=== PATIENT | male | born 1980 | race Caucasian/White ===

== ENCOUNTER → 2018-02-23 17:28 | Outpatient (CLI) | payer SELFPAY ==
--- NOTE | 2018-02-23 17:36 | CT_ITS ---
STUDY: CT PELVIS WITH CONTRAST REASON FOR EXAM: Male, 37 years old. PAIN LEFT GROIN--FEELS LIKE PREV HERNIA HX-LEFT INGUINAL HERNIA REPAIR RADIATION DOSAGE (If Supplied By Facility): CTDIvol = ( 28.21 ) mGy, DLP = ( 959.86 ) mGycm TECHNIQUE: Transaxial imaging of the pelvis was performed without oral contrast. 100CC ml of Isovue 300 contrast was administered intravenously. Individualized dose optimization techniques were used for this CT. COMPARISON: None. FINDINGS: Normal urinary bladder. The appendix is visualized and is normal. There is a left inguinal hernia containing fat. There is no bowel involvement. There is no incarceration. There is no findings suggesting that this is causing a bowel obstruction. Normal visualized small intestine. Normal visualized colon. There is no pelvic fluid. There is no pelvic lymphadenopathy or mass lesion. Normal-appearing prostate gland. Normal visualized pelvic arteries. Normal abdominal wall. Normal osseous structures. CT/Pelvis WITH IV Contrast IMPRESSION: There is a left inguinal hernia containing fat. There is no bowel involvement. There is no incarceration. There is no findings suggesting that this is causing a bowel obstruction. Electronically Signed: Morgan Watts MD at 22:40 EDT , Service support ,
== END ==
PROVIDERS: Family Provider Family Medicine; PCP Family Medicine; Visit Provider Surgery
DX: R10.30 Lower abdominal pain, unspecified (principal)
CPT/HCPCS: 72193; Q9967

== ENCOUNTER 2018-03-18 07:41 | Day surgery (SDC) | payer SELFPAY, OTHER ==
[2018-03-18] VITALS (7 sets, daily range): BP systolic 132–158; BP diastolic 78–109; PULSE 70–99; RESP 16–20; TEMP 36.4–36.9; O2SAT 97–99; BMI 30.6
--- NOTE | 2018-03-18 | HERN_PTH ---
PATIENT: MACKENZIE PACKER I LOC[place] [facility] [place][id number] AGE/SX: 37/M ROOM: RE03/18/[address]: Dr. Jesus Mendoza MD : 1980 BED: DIS: 03/18/2018 SPEC #: [id number] RECD: 03/18/18 14:26 STATUS: TANIA JADEN #: [id number] TIFFANY: 03/18/18 00:[address]: Jesus Mendoza DEPT: SURGICAL PATHOLOGY RECD BY: Alvin Cruz ENTERED: 03/18/18 14:26 SP TYPE: Hernia OTHR DR: Dr. Prince Crabtree, DO Tissues: HERNIA Procedures: Surgery Specimen Level II HEADER OPERATION: Laparoscopic left inguinal hernia repair with mesh PRE-OP DIAGNOSIS: Recurrent left inguinal hernia TISSUE SUBMITTED: Left inguinal hernia sac and contents MICROSCOPIC DIAGNOSIS Left inguinal hernia sac and contents: A piece of mature adipose tissue, consistent with hernia sac and contents. A minute lymph node tissue with reactive changes. HONEY:maria l 03/19/18 MICROSCOPIC DESCRIPTION Slides are reviewed. GROSS DESCRIPTION Received in fixative is one container labeled with the patient's name and designated inguinal hernia sac and contents. The specimen consists of a piece of yellow adipose tissue measuring 5.5 x 4.5 x 2 cm. Sections reveal yellow adipose cut surfaces without area of hemorrhage, necrosis or cystic degeneration. No mass lesion is identified. [employer] sections are submitted in one cassette. / HONEY:maria l 03/18/18 TC:5 [facility]: [id number]
--- NOTE | 2018-03-18 07:55 | EKG12_ITS ---
Test Reason : PRE OP Blood Pressure : / mmHG Vent. Rate : 071 BPM Atrial Rate : 071 BPM P-R Int : 164 ms QRS Dur : 102 ms QT Int : 396 ms P-R-T Axes : 041 -05 002 degrees QTc Int : 430 ms Normal sinus rhythm Poor R wave progression Confirmed by TAMANNA STRATTON, JESSIE ([id number]), video tape editor KRISTY TERRY ([id number]) on 03/20/2018 1:50:34 PM Referred By: Jesus Mendoza Confirmed By:JESSIE NOLEN MD
[2018-03-18 08:45] LABS: Hematocrit 43.8 % (40-54); Hemoglobin 15.3 g/dl (13.0-16.5); Mean Corp Hgb Conc 34.9 g/gl (32-36); Mean Corpuscular Hgb 29.6 pg (27.0-32.0); Mean Corpuscular Volume 84.7 fL (80-94); Mean Platelet Vol. 9.2 fl (6.2-12.0); Platelet Count 212 K/mm3 (150-450); RBC Distribution Width CV 13.4 % (11.6-14.6); Red Blood Count 5.17 M/mm3 (4.6-6.2); Scan Indicated on CBC? Y/N NO; White Blood Count 7.6 K/mm3 (4.4-11.0)
[2018-03-18 09:01] LABS: Anion Gap 6 (5-15); BUN 13 mg/dL (7-18); BUN/Creat Ratio 13.4 RATIO (10-20); Calcium,Total 8.9 mg/dL (8.5-10.1); Chloride 105 mmol/L (98-107); Creatinine, Serum 0.97 mg/dL (0.70-1.30); EST Glomerular Filtration Rate 91 mL/min (>60); Est Glom Filt Rate - Afr Amer 110 mL/min (>60); Estimated Creatinine Clearance 102.24 ml/min; Glucose 94 mg/dL (74-106); Potassium 4.1 mmol/L (3.5-5.1); Sodium Level 138 mmol/L (136-145)
--- NOTE | 2018-03-18 09:04 | DCINST_ITS ---
Discharge Diet: Light diet - advance as tolerated - if you have questions about your diet instructions, please talk to you doctor. Discharge Activity: May Not Drive - for 1 week or while taking narcotic pain medicine. May shower in (days): 1 Lifting Restrictions: 10 pounds Call your doctor if your incision/area has: Continuous Slow Oozing, Sudden Increased Bleeding, Increased Pain/ Swelling, Increased Redness, Foul Smelling Discharge Call your doctor if you observe: Fever of 101 or Higher Suture Line Care: Avoid Pulling/Pushing, Avoid Pinching/Bending Additional Dressing/Incision Instructions:: Change or remove dressing in 4 days. Leave steri-strips in place for 1 week. Allergies/Adverse Reactions: Allergies No Known Allergies Allergy (Unverified 03/11/18 14:10) Medications to take at Discharge Hydrocodone Bitart/Apap 5-325 [[place] 5MG-325MG] 1 tablet PO Q6H PRN PRN 3 Days # 10 tablet 03/18/18 The following prescriptions were given: Hydrocodone Bitart/Apap 5-325 [[place] 5MG-325MG] 1 tablet PO Q6H PRN PRN 3 Days # 10 tablet PRN Reason: Pain Primary Care Physician: Prince Crabtree DO [Primary Care Provider] - Please Follow Up With: Jesus Mendoza MD - [phone] When: Call to make an appointment to be seen in about 10 days.
[2018-03-18] MEDS: Cefazolin 2 GM in 0.9% Normal Saline 100 ML IV (09:10)
[2018-03-18] MEDS: Bupivacaine Mpf 0.5% 30 ML VIAL (10:00)
--- NOTE | 2018-03-18 10:32 | PCM.OPRPT ---
Problem List (1) Left inguinal hernia Status: Acute Report of Operation Date of Procedure: 03/18/18 Pre-Operative Diagnosis: Recurrent left inguinal hernia Post-Operative Diagnosis: Recurrent incarcerated left inguinal hernia with large cord incarcerated omentum and sac Surgery/Procedure Performed:: Laparoscopic repair of recurrent left inguinal herniorrhaphy with open excision of incarcerated omentum and sac Description of Surgical Findings:: Timeout and informed consent was obtained. 37-year-old gent was taken out from placement table underwent general endotracheal intubation anesthesia. Ancef 2 g given intravenous preoperatively. The abdomen sterilely prepped and draped. Because of a previous transverse umbilical incision consistent with a previous remote umbilical herniorrhaphy I made a vertical supraumbilical incision. 0.5% Marcaine was used as local anesthetic throughout the procedure total 30 cc was used I made a vertical incision used holding sutures of 0 Vicryl drained get direct access to the peritoneum placed a 10 mm trocar the abdomen was insufflated with CO2 there is evidence of a recurrent left inguinal hernia omentum was absolutely densely incarcerated within a recurrent indirect defect. Five-minute trochars were placed in the right and left lower quadrants and in the ileal inguinal nerve block was performed arthroscopically with a local tedious effort was made after incising the peritoneum and flapping down the peritoneum to release the incarcerated omentum it became apparent that the incarcerated portion had become a mushroom cap and was not going to be pulled back through the small hole so I used Hem-o-shyam clips to secure the omentum transected it with electrocautery completed my dissection by completely freeing the peritoneum so I could see the direct space indirect space and femoral area. Good hemostasis was intact. I then utilized a Bard 3D max large left mesh lot number [id number] expiry date 10/28/2022 reference #[id number]. I placed it so as to cover the defect area at the direct and indirect space. I secured laterally and superiorly medially with secure strap 6 packs were used. The peritoneum was then approximated to itself using 2 secure strap and then I used hemoclips to repair small peritoneal hole. Complete obliteration to the mesh was achieved. Trochars removed and visualization the abdomen was allowed to deflate of CO2 the fascia at the umbilicus was approximated with several interrupted 0 Nurolon sutures skin edges approximated up to 4 Monocryl subdermal stitches Steri-Strips Telfa OpSite dressings applied. The patient still however had a large palpable mass of tissue in the left groin. I felt that this was the second half of the omentum and the patient would be symptomatic. I made a transverse incision directly over this area performed electrocautery dissection and immediately entered upon the S remnants of the sac with incarcerated omentum I was able to circumferentially completely dissected free and remove it. Hemostasis was nicely intact. The wound was closed with deep layer of interrupted 3-0 Vicryl and then the superficial layer of running septic or 4-0 Monocryl. Steri-Strips Telfa and OpSite dressings applied. Sponge and needle and instrument count was reported the surgeon to correct blood loss was minimal. Specimens included the incarcerated omentum and hernia sac. Drains none. Blood loss minimal. The secure tack strap used was lab #[id number] V1. It was otherwise identified as [id number] STIR AP 20 5N. Lot number [id number]. Expiry date 06/19/2019 Jesus Mendoza M.D., F.A.C.S. Type of Anesthesia:: General Anesthesiologist: Chelsea Saleh
--- NOTE | 2018-03-18 10:38 | OP.PCM_ITS ---
Problem List (1) Left inguinal hernia Status: Acute Report of Operation Date of Procedure: 03/18/18 Pre-Operative Diagnosis: Recurrent left inguinal hernia Post-Operative Diagnosis: Recurrent incarcerated left inguinal hernia with large cord incarcerated omentum and sac Surgery/Procedure Performed:: Laparoscopic repair of recurrent left inguinal herniorrhaphy with open excision of incarcerated omentum and sac Description of Surgical Findings:: Timeout and informed consent was obtained. 37-year-old gent was taken out from placement table underwent general endotracheal intubation anesthesia. Ancef 2 g given intravenous preoperatively. The abdomen sterilely prepped and draped. Because of a previous transverse umbilical incision consistent with a previous remote umbilical herniorrhaphy I made a vertical supraumbilical incision. 0.5% Marcaine was used as local anesthetic throughout the procedure total 30 cc was used I made a vertical incision used holding sutures of 0 Vicryl drained get direct access to the peritoneum placed a 10 mm trocar the abdomen was insufflated with CO2 there is evidence of a recurrent left inguinal hernia omentum was absolutely densely incarcerated within a recurrent indirect defect. Five-minute trochars were placed in the right and left lower quadrants and in the ileal inguinal nerve block was performed arthroscopically with a local tedious effort was made after incising the peritoneum and flapping down the peritoneum to release the incarcerated omentum it became apparent that the incarcerated portion had become a mushroom cap and was not going to be pulled back through the small hole so I used Hem-o-shyam clips to secure the omentum transected it with electrocautery completed my dissection by completely freeing the peritoneum so I could see the direct space indirect space and femoral area. Good hemostasis was intact. I then utilized a Bard 3D max large left mesh lot number [id number] expiry date 10/28/2022 reference #[id number]. I placed it so as to cover the defect area at the direct and indirect space. I secured laterally and superiorly medially with secure strap 6 packs were used. The peritoneum was then approximated to itself using 2 secure strap and then I used hemoclips to repair small peritoneal hole. Complete obliteration to the mesh was achieved. Trochars removed and visualization the abdomen was allowed to deflate of CO2 the fascia at the umbilicus was approximated with several interrupted 0 Nurolon sutures skin edges approximated up to 4 Monocryl subdermal stitches Steri-Strips Telfa OpSite dressings applied. The patient still however had a large palpable mass of tissue in the left groin. I felt that this was the second half of the omentum and the patient would be symptomatic. I made a transverse incision directly over this area performed electrocautery dissection and immediately entered upon the S remnants of the sac with incarcerated omentum I was able to circumferentially completely dissected free and remove it. Hemostasis was nicely intact. The wound was closed with deep layer of interrupted 3-0 Vicryl and then the superficial layer of running septic or 4-0 Monocryl. Steri-Strips Telfa and OpSite dressings applied. Sponge and needle and instrument count was reported the surgeon to correct blood loss was minimal. Specimens included the incarcerated omentum and hernia sac. Drains none. Blood loss minimal. The secure tack strap used was lab #[id number] V1. It was otherwise identified as [id number] STIR AP 20 5N. Lot number [id number]. Expiry date 06/19/2019 Jesus Mendoza M.D., F.A.C.S. Type of Anesthesia:: General Anesthesiologist: Chelsea Saleh
== END 2018-03-18 14:11 | disposition home or self-care (01) ==
LOC: SDC 07:42 → AC 07:43
PROVIDERS: Family Provider Family Medicine; PCP Family Medicine; Visit Provider Surgery
PROC: (CPT 49650; principal; 2018-03-18 09:00)
DX: K40.31 Unilateral inguinal hernia, with obstruction, without gangrene, recurrent (principal); Z87.891 Personal history of nicotine dependence
CPT/HCPCS: 49651; 36415; 80048; 85027; 88302; 93005; J7120; C1781; J2405

== ENCOUNTER 2021-11-13 20:27 | Emergency (ER) | payer OTHER, SELFPAY ==
[2021-11-13 20:28] VITALS: BP 183/126; PULSE 105; RESP 16; TEMP 36; O2SAT 97; BMI 34.9
--- NOTE | 2021-11-13 20:30 | RAD_ITS ---
EXAM: XR RIGHT FOOT COMPLETE, 3 OR MORE VIEWS CLINICAL INDICATION: FALL Technologist Notes Other, FELL OFF A LADDER C/O PAIN AND SWELLING ACROSS TOP OF RT FOOT AREA OF 2ND-5TH METATARSALS TECHNIQUE: Frontal, lateral and oblique views of the right foot. This report was created using Stitch report generation technology. COMPARISON: None. FINDINGS: BONES/JOINTS: Fracture the base of the first through fifth metatarsal bones. There is dislocation of the second third fourth and fifth metatarsal bones laterally. There is disruption of the medial and mid cuneiform articulation suggesting a dislocation of the bone. There is an enthesophyte involving the posterior superior calcaneus at the site of insertion of the Achilles tendon. No sclerotic or destructive changes observed. SOFT TISSUES: Soft tissue swelling around the foot. No radiopaque foreign body. RAD/Foot min 3 Views IMPRESSION: 1. Fracture the base of the first through fifth metatarsal bones. There is dislocation of the second third fourth and fifth metatarsal bones laterally. 2. There is disruption of the medial and mid cuneiform articulation suggesting a dislocation of the bone. Electronically Signed: Morgan Watts MD at 20:50 EST , Service support ,
[2021-11-13] MEDS: HYDROcodone Bitartrate/Apap 5/325 Tablet PO (23:06)
--- NOTE | 2021-11-13 23:06 | CT_ITS ---
HISTORY: fracture -- fatmata franc fx. include ankle and foot EXAMINATION: CT Lower Extremity W/O Contrast Injection TECHNIQUE: Helically acquired images were obtained of the right foot. 2-D reformats were performed by the technologist. A radiation dose optimization technique was used for this scan. IV Contrast dosage and agent: None COMPARISON: Foot radiograph November 13, 2021 FINDINGS: SOFT TISSUES: Dorsal forefoot edema. No radiopaque foreign body. BONES/JOINTS: Comminuted fractures of the medial cuneiform, plantar second third and fourth metatarsal base, lateral fifth metatarsal base. Fracture of of the cuboid and lateral cuneiform. Dorsal lateral displacement of the second metatarsal base (and other metatarsals) with marked widening of the Lisfranc ligament and interposition of medial cuneiform fragments into the Lisfranc space. No sclerotic or destructive changes. CT/Extremity Lower without Contra IMPRESSION: Numerous tarsal metatarsal base fractures as above with Lisfranc ligament disruption and gross dorsal lateral displacement of the second metatarsal (and other metatarsal ) base. Individualized dose optimization techniques were used for this CT. at 0119 Reported and signed by: Jean Claude Osman MD Electronically Signed: Jean Claude Osman MD at 1:18 EST Tel , Service support ,
--- NOTE | 2021-11-13 23:17 | EDS_ITS ---
HPI History of Present Illness Chief Complaint: Lower Extremity Injury Informant: patient Narrative Narrative: Patient presents valuation of right foot injury occurring proxy 7:30 PM this evening. Helping his neighbor inside their shop when the ladder skidded down. He came off directly onto his foot. He did not fall or hit his head. Pain to the right foot. No paresthesias. No neck or back pain. Denies history of fractures. History of inguinal hernia repair. He has tolerated [place] in the past. PFSH PFSH Medical History Left inguinal hernia Non-smoker Recurrent left inguinal hernia Home Medications hydrocodone-acetaminophen 1 tab PO Q6H PRN 3 Days #12 tab 11/13/21 [Rx Last Taken Unknown] Allergy/AdvReac Type Severity Reaction Status Date / Time No Known Allergies Allergy Unverified 11/13/21 20:29 Surgical History H/O inguinal hernia repair Social History Smoking Status: Never smoker alcohol intake: never ROS ROS ED Constitutional Constitutional ED: Denies chills, fever(s) or sweats Eyes Eyes: Denies change in vision ENT ENT ED: Denies dysphagia or sore throat Cardiovascular Cardiovascular: Denies chest pain, leg edema, palpitations or racing heartbeat Respiratory/Chest Respiratory/Chest: Denies cough, dyspnea or dyspnea on exertion Gastrointestinal Gastrointestinal: Denies abdominal pain, diarrhea, nausea or vomiting Genitourinary Genitourinary ED: Denies dysuria, hematuria or urinary frequency Musculoskeletal Musculoskeletal: Reports other Details: Right foot injury ; Denies back pain, e xtremity pain or neck pain Integumentary Denies rash or wounds Neurologic Neurologic: Denies headache(s), paresthesias or weakness EXAM Physical Exam Const Vital Signs: 11/13/21 20:28 Temperature 96.8 F L Temperature Source Temporal Pulse Rate 105 H Respiratory Rate 16 Blood Pressure 183/126 H Blood Pressure Mean 145 Pulse Ox 97 Oxygen Delivery Method Room Air Positive well nourished and well developed General Appearance ED: well developed and NAD HEENT Reports moist mucous membranes normocephalic and atraumatic Eyes PERRL, EOMs intact bilaterally and conjunctivae normal General Eye ED: Yes normal appearance of both eyes Neck no lymphadenopathy and supple General: Negative for tenderness Chest Wall Chest: Negative for tenderness Resp normal respiratory effort and normal air movement Effort and Inspection: symmetric chest movement; Negative for respiratory distress Cardio regular rate, regular rhythm and no murmurs Peripheral Pulses: pulses 2+ throughout GI normal to inspection, nondistended, normoactive bowel sounds and non-tender Palpation: Negative for guarding or rebound tenderness present Back/Spine no CVA tenderness and no thoracic nor lumbar tenderness Extremity Extremity Narrative: Right lower extremity: No hip knee or ankle tenderness. There is swelling to the foot with ecchymosis laterally. Skin intact. Neurovascular intact distally. General Extremety ED: Yes edema; Negative for tenderness General Extremity: edema Neuro oriented x3 and no sensory deficits noted Sensorium / Orientation: awake and alert Skin no rashes or lesions noted and no wounds MDM MDM MDM Narrative Medical decision making narrative: Patient's x-ray was obtained from triage due to busy department. This was reviewed by myself 3 views right foot concerns for Lisfranc fracture dislocation. There is no shifting of the 2nd-5th metatarsals laterally. Appears to have avulsion fracture proximal first metatarsal, transverse fracture density proximal fifth metatarsal. His skin is intact. He is fairly comfortable in no acute distress with this fracture. His blood pressure was elevated likely due to the fracture. He has tolerated [place] which was given to him. I discussed with foot and ankle Dr. Bergman, she did agree with obtaining lower extremity CT for surgical planning. She agrees with a posterior splint and nonweightbearing with crutches. She will closely see him in the next 2 days. Discussed compartment syndrome symptoms for strict return with the patient and family. Splinting procedure: Verbal consent. Nylon sleeve was placed, Kerlix was wrapped for padding. Extra padding to the foot was placed. A 5 inch plaster short leg splint was placed. Malcolm wrap used to secure. Neurovascular intact post splinting. Patient tolerate procedure well. Discharge Plan Triage Chief Complaint: Lower Extremity Injury ED Provider: Santiago Smith Dx/Rx/DC Orders Clinical Impression: Lisfranc dislocation, Lisfranc fracture, Foot fracture, right Instructions: Understanding Lisfranc Joint Injury, Treatment for Lisfranc Joint Injury, ED Fracture, Foot Prescriptions: New hydrocodone-acetaminophen 5-325 mg tablet 1 tab PO Q6H PRN (Reason: pain) 3 Days Qty: 12 RF: 0 Primary Care Provider: Prince Crabtree Referrals: Key Bergman DPM [STAFF PHYSICIAN] - 2 Days Prince Crabtree DO [Primary Care Provider] - Activity Restrictions/Additional Instructions: Maintain splint. Nonweightbearing to the right lower extremity. Use crutches. Take pain medication as needed. Call office of Dr. Bergman to be seen on . If any worsening pain and paresthesias return immediately to the ED. Disposition Disposition: Home, Self Care Discharge Date/Time: 11/14/21 00:16
[2021-11-14] MEDS: HYDROcodone Bitartrate/Apap 5/325 Tablet PO (00:10)
== END 2021-11-14 00:16 | disposition home or self-care (01) ==
PROVIDERS: Emergency Provider Emergency Medicine; PCP Family Medicine
DX: S92.311A Displaced fracture of first metatarsal bone, right foot, initial encounter for closed fracture (principal); S92.321A Displaced fracture of second metatarsal bone, right foot, initial encounter for closed fracture; S92.331A Displaced fracture of third metatarsal bone, right foot, initial encounter for closed fracture; S92.341A Displaced fracture of fourth metatarsal bone, right foot, initial encounter for closed fracture; S92.351A Displaced fracture of fifth metatarsal bone, right foot, initial encounter for closed fracture; S93.334A Other dislocation of right foot, initial encounter; W11.XXXA Fall on and from ladder, initial encounter; Y93.9 Activity, unspecified; Y92.9 Unspecified place or not applicable
CPT/HCPCS: 29515; 73630; 73700; 99283